=== PATIENT | female | born 1960 | race Caucasian/White ===

== ENCOUNTER 2019-03-17 15:52 | Observation (INO) | payer OTHER ==
[~2019-03-17] VITALS: Ht 170.2 cm; Wt 93.9 kg
--- OUTSIDE RECORDS SUMMARY | 2019-03-17 15:54 | XMS REPORT | Encounter Summary ---
Author Organization Unknown Address [address] [place] [address] Phone [phone] Care Team Providers Care Senior Quality Assurance Analyst Name Role Phone Dr. Ajit Barnes 3 [phone] Reason for Visit thyroid problem Instructions 1. Adult health examination CBC w/ auto diff CMP, serum or plasma lipid panel, serum 2. Body mass index 25-29 - overweight learning about healthy weight 3. Hypothyroidism levothyroxine 150 mcg tablet TSH, serum or plasma 4. Screening for malignant neoplasm of breast 5. Screening for malignant neoplasm of colon fecal occult blood, stool 6. Major depressive disorder 7. Insomnia zolpidem 10 mg tablet 8. Genital herpes simplex valacyclovir 500 mg tablet 9. Impacted cerumen of bilateral ears Discussion Note: None recorded. Plan of Care Reminders Provider Appointments Est Patient 02/25/2019 2:30PM Ajit Patel MD Lab Fecal Occult Blood, Stool 11/25/2018 [facility] TSH, Serum or Plasma 11/25/2018 [facility] CBC W/ Auto Diff 11/25/2018 [facility] CMP, Serum or Plasma 11/25/2018 [facility] Lipid Panel, Serum 11/25/2018 [facility] Referral None recorded. Procedures None recorded. Surgeries None recorded. Imaging None recorded. Medications Name Start Date fenofibrate nanocrystallized 145 mg tablet Take 1 tablet every day by oral route for 90 days. levothyroxine 150 mcg tablet Take 1 tablet every day by oral route. olmesartan 20 mg-hydrochlorothiazide 12.5 mg tablet Take 1 tablet every day by oral route for 90 days. Trintellix 10 mg tablet Take 1 tablet twice a day by oral route. valacyclovir 500 mg tablet Take 1 tablet every day by oral route as needed. zolpidem 10 mg tablet Take 1 tablet as needed by oral route at bedtime for 30 days. Medications Administered None recorded. Vitals Height Weight BMI Blood Pressure 5 ft 6.5 in 172.4 lbs 27.4 kg/m2 138/82 mm[Hg] Lab Results None recorded. Allergies Code Code System Name Reaction Severity Status Onset NKDA Problems Name Status Onset Date Source Hypothyroidism Active 11/25/2018 Hyperlipidemia Active 11/25/2018 Major Depressive Disorder Active 11/25/2018 Insomnia Active 11/25/2018 Hypertensive Disorder Active 11/25/2018 Procedures None recorded. Vaccine List None recorded. Social History Smoking Status Former Smoker (1 PPD) Past Encounters 11/25/2018 Adult Health Examination; Body Mass Index 25-29 - Overweight; Hypothyroidism; Screening for Malignant Neoplasm of Breast; Screening for Malignant Neoplasm of Colon; Major Depressive Disorder; Insomnia; Genital Herpes Simplex; Impacted Cerumen of Bilateral Ears Ajit Patel MD: [address] [place] [address], Ph. History of Present Illness Note:Coming to establish care. Hx of HTN, HLD, hypothyroidism, insomnia and MDD. Not checking BPs at home. Needs refills. Compliant with meds. Non compliant with diet or exercise. No side effects with meds. No new concerns. Review of Systems Comprehensive General Adult ROS Reported By: Patient Constitutional: Constitutional: no fever, no night sweats, no significant weight gain, no significant weight loss, no exercise intolerance Eyes: Eyes: no dry eyes, no vision change, no irritation ENMT: Ears: no ear pain, difficulty hearing. Nose: no frequent nosebleeds, no nose problems, no sinus problems. Mouth/Throat: no sore throat, no bleeding gums, no snoring, no dry mouth, no mouth ulcers, no oral abnormalities, no teeth problems Cardiovascular: Cardiovascular: no chest pain, no arm pain on exertion, no shortness of breath when walking, no shortness of breath when lying down, no palpitations, no known heart murmur, no lightheadedness Respiratory: Respiratory: no cough, no wheezing, no shortness of breath, no coughing up blood, no sleep apnea Gastrointestinal: Gastrointestinal: no abdominal pain, no nausea, no vomiting, no constipation, normal appetite, no diarrhea, not vomiting blood, no dyspepsia, no GERD Genitourinary: Genitourinary: no incontinence, no difficulty urinating, no hematuria, no increased frequency Musculoskeletal: Musculoskeletal: no muscle aches, no muscle weakness, no arthralgias/joint pain, no back pain, no swelling in the extremities Integumentary: Skin: no abnormal mole, no jaundice, no rashes, no laceration Neurologic: Neurologic: no loss of consciousness, no weakness, no numbness, no seizures, no dizziness, no migraines, no headaches, no tremor Psychiatric: Psych: no depression, no sleep disturbances, feeling safe in a relationship, no alcohol abuse, no anxiety, no hallucinations, no suicidal thoughts Endocrine: Endocrine: no fatigue Hematologic/Lymphatic: Hematologic/Lymphatic no swollen glands, no bruising, no excessive bleeding Allergic/Immunologic: Allergy/Immunologic: no runny nose, no sinus pressure, no itching, no hives, no frequent sneezing Physical Exam General Adult Exam (male) Reported By: Patient Constitutional: General Appearance: healthy-appearing, overweight. Level of Distress: NAD. Ambulation: ambulating normally Psychiatric: Insight: good judgement. Mental Status: active and alert, normal mood, normal affect. Orientation: to time, to place, to person. Memory: recent memory normal, remote memory normal Head: Head: normocephalic, atraumatic Eyes: Lids and Conjunctivae: non-injected, no discharge. EOM: EOMI ENMT: Ears: EAC ceruminous. Nose: no sinus tenderness. Lips, Teeth, and Gums: no mouth or lip ulcers. Oropharynx: moist mucous membranes Neck: Neck: supple, trachea midline. Thyroid: no enlargement, non-tender Lungs: Auscultation: breath sounds normal Cardiovascular: Heart Auscultation: RRR, normal S1, normal S2, no murmurs. Neck vessels: no carotid bruits Abdomen: Inspection and Palpation: soft, non-distended, no tenderness, no guarding Musculoskeletal:: Motor Strength and Tone: normal, normal tone. Joints, Bones, and Muscles: normal movement of all extremities, no contractures, no bony abnormalities, no malalignment, no tenderness. Extremities: no edema Neurologic: Gait and Station: normal gait. Cranial Nerves: grossly intact. Sensation: grossly intact. Reflexes: DTRs 2+ bilaterally throughout. Coordination and Cerebellum: [id number] intact, no tremor Skin: Inspection and palpation: no rash, no lesions Back: Thoracolumbar Appearance: normal curvature
--- OUTSIDE RECORDS SUMMARY | 2019-03-17 15:54 | XMS REPORT ---
Author Author [facility] Address Unknown Phone Unavailable Care Team Providers Care Application Coordinator Name Role Phone Unavailable Unavailable Payers Payer Name Policy Type Policy Number Effective Date Expiration Date Problems This patient has no known problems. Allergies, Adverse Reactions, Alerts Allergy Name Allergy Type Status Severity Reaction(s) Onset Date Inactive Date Treating Clinician Comments No Known Allergies DA Active U 2018-05-30 00:00:00 No Known Contrast Allergies DA Active U 2006-02-07 00:00:00 No Known Drug Allergies DA Active U 2006-02-07 00:00:00 No Known Food Allergies DA Active U 2006-02-07 00:00:00 No Known Other Allergies DA Active U 2006-02-07 00:00:00 No Known Drug Intolerances DA Active U 2006-02-06 00:00:00 Medications This patient has no known medications.
[2019-03-17] MEDS ORDERED: SODIUM CHLORIDE 0.9% 1000ML 1,000 ML IV STA (16:21)
[2019-03-17] MEDS ORDERED: ONDANSETRON HCL INJ 2MG/ML 2ML 2 MG/ML VIAL IV ONE (16:21)
[2019-03-17 16:45] LABS: BASOPHILS % 0.3 % (0.0-1.0); EOSINOPHILS # (AUTO) 0.1 (0.0-0.4); EOSINOPHILS % 0.9 % (0.0-6.0); HEMATOCRIT 39.1 % (34.2-44.1); HEMOGLOBIN 13.6 g/dL (12.0-16.0); LYMPHOCYTES # (AUTO) 2.4 (1.0-3.2); LYMPHOCYTES % 24.9 % (18.0-39.1); MEAN CORPUSCULAR HEMOGLOBIN 32.3 pg (28-32); MEAN CORPUSCULAR HGB CONC 34.8 g/dL (31-35); MEAN CORPUSCULAR VOLUME 92.9 fL (81-99); MONOCYTES # (AUTO) 0.7 (0.2-0.8); MONOCYTES % 6.8 % (4.4-11.3); NEUTROPHILS # (AUTO) 6.4 (2.1-6.9); NEUTROPHILS % 66.8 % (38.7-80.0); PLATELET COUNT 294 x10e3/uL (140-360); RED BLOOD COUNT 4.21 x10e6/uL (3.6-5.1); RED CELL DISTRIBUTION WIDTH 12.2 % (11.7-14.4)
[2019-03-17 16:56] LABS: INR 0.85; PROTHROMBIN TIME 12.1 seconds (11.9-14.5)
[2019-03-17 16:57] LABS: PARTIAL THROMBOPLASTIN TIME 30.2 seconds (23.8-35.5)
[2019-03-17 17:02] LABS: BILIRUBIN,URINE NEGATIVE (NEGATIVE); CLARITY,URINE SL CLOUDY (CLEAR); COLOR,URINE YELLOW (YELLOW); KETONES,URINE NEGATIVE (NEGATIVE); LEUKOCYTE ESTERASE ,URINE NEGATIVE (NEGATIVE); NITRITE,URINE POSITIVE (NEGATIVE); PROTEIN,URINE DIPSTICK NEGATIVE (NEGATIVE); URINE UROBILINOGEN 0.2 mg/dL (0.2 - 1)
[2019-03-17 17:05] LABS: ALANINE AMINOTRANSFERASE 18 IU/L (0-55); ALBUMIN 3.4 g/dL (3.5-5.0); ALBUMIN/GLOBULIN RATIO 1.1 (0.8-2.0); ALKALINE PHOSPHATASE 96 IU/L (40-150); ANION GAP 13.1 mmol/L (8-16); BLOOD UREA NITROGEN 20 mg/dL (7-26); BUN/CREATININE RATIO 18 (6-25); CALCIUM 9.7 mg/dL (8.4-10.2); CARBON DIOXIDE 30 mmol/L (22-29); CHLORIDE 95 mmol/L (98-107); CREATINE KINASE 36 IU/L (29-168); EST GLOMERULAR FILTRATION RATE 51 ML/MIN (60-); GLUCOSE 103 mg/dL (74-118); LIPASE 25 U/L (8-78); POTASSIUM 3.1 mmol/L (3.5-5.1); SODIUM 135 mmol/L (136-145)
[2019-03-17 17:22] LABS: BACTERIA,URINE MODERATE /HPF; EPITHELIAL CELLS,URINE MODERATE /LPF; WBC,URINE (MAN) 0-5 /HPF (0-5)
--- NOTE | 2019-03-17 17:24 | Diagnostic Imaging Report ---
EXAM: CHEST SINGLE (PORTABLE) DATE: 03/17/2019 4:21 PM INDICATION: Vomiting, diarrhea COMPARISON: None FINDINGS: The trachea is midline. The lungs are symmetrically expanded without evidence for focal consolidation, pneumothorax, or significant pleural effusion. The cardiomediastinal silhouette and pulmonary vasculature are within normal limits. Partially visualized cervical fusion hardware is noted. No acute osseous abnormalities identified. IMPRESSION: No acute cardiopulmonary process identified. Signed by: Dr. Saravanan Moses MD on 03/17/2019 5:20 PM
[2019-03-17] MEDS ORDERED: POTASSIUM CHLORIDE 20 MEQ TAB CR PO ONE (18:03)
--- NOTE | 2019-03-17 18:13 | Diagnostic Imaging Report ---
EXAM: CT Abdomen and Pelvis WITH contrast INDICATION: Vomiting and diarrhea. Lower back pain. COMPARISON: None. TECHNIQUE: Abdomen and pelvis were scanned utilizing a multidetector helical scanner from the lung base to the pubic symphysis after administration of IV contrast. Coronal and sagittal reformations were obtained. Routine protocol was performed. Scan was performed when during portal venous phase. IV CONTRAST: 100 mL of Isovue-370 ORAL CONTRAST: Water RADIATION DOSE: Total DLP: 409 mGy*cm Estimated effective dose: (DLP x 0.015 x size factor) mSv. Dose modulation, iterative reconstruction and weight base adjustment of the MA/KV was utilized to reduce the patient dose to as low as reasonably achievable COMPLICATIONS: None FINDINGS: LINES and TUBES: None. LOWER THORAX: Unremarkable HEPATOBILIARY: No focal hepatic lesions. No biliary ductal dilation. GALLBLADDER: No radio-opaque stones or sludge. No wall thickening. SPLEEN: No splenomegaly. PANCREAS: No focal masses or ductal dilatation. ADRENALS: No adrenal nodules KIDNEYS/URETERS: Kidneys enhance symmetrically. No hydronephrosis. Likely simple cysts in the right kidney. No stones. GI TRACT: No abnormal distention, wall thickening, or evidence of bowel obstruction. Appendix is normal. Scattered diverticulosis without evidence of diverticulitis PELVIC ORGANS/BLADDER: Likely left ovary in the left mid pelvis best seen on series 2 image 65. LYMPH NODES: No lymphadenopathy. VESSELS: Scattered vascular calcification. PERITONEUM / RETROPERITONEUM: No free air or fluid. BONES: Unremarkable. SOFT TISSUES: Left breast implant. IMPRESSION: 1. Scattered diverticulosis without evidence of diverticulitis. No bowel obstruction. Signed by: Dr. Dariel Dinh M.D. on 03/17/2019 6:09 PM
[2019-03-17] MEDS ORDERED: CEFTRIAXONE SOD 1 GM/NS 50 ML 50 ML IV ONE (18:15)
[2019-03-17] MEDS ORDERED: KCL 20MEQ/.9 SOD CHL 1,000 ML IV ONE (18:15)
[2019-03-17] MEDS: MORPHINE SULFATE 2 MG/ML SYR 1ML IV PRN (19:53)
[2019-03-17] MEDS: CEFTRIAXONE SOD 1 GM/NS 50 ML 50 ML IV SCH (19:53)
[2019-03-17] MEDS: ONDANSETRON HCL INJ 2MG/ML 2ML 2 MG/ML VIAL IV PRN (19:54)
[2019-03-17] MEDS ORDERED: ZOLPIDEM TARTRATE 5 MG TAB PO ONE (23:30)
[2019-03-18] MEDS ORDERED: IOPAMIDOL 370 MG/ML 200 ML INFUS..BTL INJ ONE (02:09)
[2019-03-18] MEDS ORDERED: SODIUM CHLORIDE 0.9% 50ML 50 ML ONE (02:09)
[2019-03-18 03:30] VITALS: BP 123/69
--- NOTE | 2019-03-18 03:30 | NUR ---
patient received to room 292 via wc from the er. vss. no c/o pain noted. ivf continue to infuse without difficulty x 1 bag only per orders. admit assessment/history obtained. patient unaware of her home medications and dosages. patient will have bring her medications to her today.
[2019-03-18 04:00] VITALS: BP 123/69
--- NOTE | 2019-03-18 06:44 | NUR ---
H&P cc: N/V/D HPI: 59yoF, PCP , developed N/V/D for 3 weeks. No abdominal pain. Went to see , sent to ED. Last colonoscopy about 9 yrs ago. PMH: HTN, nicotine dependence PSxh: hysterectomy Allergies; see emr FH/Sh; ; occ etoh; quit cigs Meds; see emr ROS: no f/c/s/cp/sob/dizziness/skin rash/back pain/vision changes/anxiety V/s; revd PE nad anicteric ns1s2 mod bs soft nt nd no e/t skin dry n. affect steele labs/meds; revd A/P: 59yoF Acute gastroenteritis- bacterial UTI [place] Hypokalemia Diverticulosis Obesity BMI 32.4 PLAN IVF; IV abx; f/u cx; Recheck labs SCD hba1c/lipids Gustavo Stanford MD, PhD
--- NOTE | 2019-03-18 07:00 | NUR ---
BEDSIDE SHIFT REPORT RECEIVED FROM THE DATA ENTRY COORDINATOR RN. EDUCATED PT ABOUT FALL PRECAUTIONS. CALL LIGHT WITH IN EASY REACH. INSTRUCTED PT TO CALL FOR ANY NEEDS. PT DENIES NEEDS AT THIS TIME.
[2019-03-18 07:21] LABS: BASOPHILS % 0.5 % (0.0-1.0); EOSINOPHILS # (AUTO) 0.2 (0.0-0.4); EOSINOPHILS % 2.9 % (0.0-6.0); HEMATOCRIT 33.7 % (34.2-44.1); HEMOGLOBIN 11.3 g/dL (12.0-16.0); LYMPHOCYTES # (AUTO) 2.7 (1.0-3.2); LYMPHOCYTES % 34.7 % (18.0-39.1); MEAN CORPUSCULAR HGB CONC 33.5 g/dL (31-35); MEAN CORPUSCULAR VOLUME 95.5 fL (81-99); MONOCYTES # (AUTO) 0.5 (0.2-0.8); MONOCYTES % 6.9 % (4.4-11.3); NEUTROPHILS # (AUTO) 4.3 (2.1-6.9); NEUTROPHILS % 54.7 % (38.7-80.0); PLATELET COUNT 223 x10e3/uL (140-360); RED BLOOD COUNT 3.53 x10e6/uL (3.6-5.1); RED CELL DISTRIBUTION WIDTH 12.5 % (11.7-14.4)
[2019-03-18 07:41] VITALS: BP 138/85
[2019-03-18 07:53] LABS: ALANINE AMINOTRANSFERASE 16 IU/L (0-55); ALBUMIN 2.9 g/dL (3.5-5.0); ALKALINE PHOSPHATASE 82 IU/L (40-150); ANION GAP 11.2 mmol/L (8-16); BLOOD UREA NITROGEN 11 mg/dL (7-26); BUN/CREATININE RATIO 12 (6-25); CALCIUM 8.5 mg/dL (8.4-10.2); CARBON DIOXIDE 27 mmol/L (22-29); CHLORIDE 101 mmol/L (98-107); CREATININE, SERUM 0.89 mg/dL (0.57-1.11); EST GLOMERULAR FILTRATION RATE > 60 ML/MIN (60-); GLUCOSE 92 mg/dL (74-118); LIPASE 14 U/L (8-78); POTASSIUM 3.2 mmol/L (3.5-5.1); SODIUM 136 mmol/L (136-145)
[2019-03-18] MEDS: SODIUM CHLORIDE 0.9% 1000ML 1,000 ML IV SCH ×2 (07:57→20:00)
[2019-03-18] MEDS: MORPHINE SULFATE 2 MG/ML SYR 1ML IV PRN ×4 (08:01→21:50)
[2019-03-18] MEDS: METRONIDAZOLE 500MG/NS 100ML 100 ML IV SCH ×2 (08:09→16:55)
[2019-03-18 08:10] LABS: MAGNESIUM 1.3 MG/DL (1.3-2.1); PHOSPHORUS 3.1 MG/DL (2.3-4.7)
[2019-03-18] MEDS: FAMOTIDINE 20 MG/2 ML VIAL IV SCH ×2 (08:11→17:12)
[2019-03-18 08:41] VITALS: BP 138/85
[2019-03-18 11:31] VITALS: BP 152/91
[2019-03-18] MEDS: POTASSIUM CHLORIDE 20 MEQ TAB CR PO SCH ×2 (12:36→18:06)
[2019-03-18 15:37] VITALS: BP 115/65
[2019-03-18] MEDS: LACTOBACILLUS ACIDOPHILUS CAPSULE PO SCH (17:12)
[2019-03-18] MEDS ORDERED: HYZAAR 100-251 EACH (18:14)
[2019-03-18] MEDS ORDERED: ATORVASTATIN CA20 MG PO (18:15)
[2019-03-18] MEDS ORDERED: LEVOTHYROXINE50 MCG PO (18:15)
[2019-03-18] MEDS ORDERED: MIRALAX17 GM (18:17)
--- NOTE | 2019-03-18 19:00 | NUR ---
patient received awake, alert, sitting up in bed. noted at the bedside. patient denies pain/discomfort at this time. ivf continue to infuse without difficulty. pm assessment complete. patient instructed to call for assistance when needed.
[2019-03-18 19:37] LABS: WBC,FECAL (FECAL LACTOFERRIN) NEGATIVE (NEGATIVE)
[2019-03-18] MEDS: ONDANSETRON HCL INJ 2MG/ML 2ML 2 MG/ML VIAL IV PRN (21:50)
[2019-03-19] VITALS (7 sets, daily range): BP systolic 135–176; BP diastolic 67–84
[2019-03-19] MEDS: ONDANSETRON HCL INJ 2MG/ML 2ML 2 MG/ML VIAL IV PRN ×2 (04:10→20:38)
[2019-03-19] MEDS: MORPHINE SULFATE 2 MG/ML SYR 1ML IV PRN ×4 (04:10→20:38)
--- NOTE | 2019-03-19 07:00 | NUR ---
BEDSIDE SHIFT REPORT RECEIVED FROM THE PRODUCT DEVELOPMENT ASSISTANT RN. EDUCATED PT ABOUT FALL PRECAUTIONS. BED ALARM IS ON. CALL LIGHT WITH IN EASY REACH. INSTRUCTED PT TO CALL FOR ANY NEEDS. PT DENIES NEEDS AT THIS TIME.
--- NOTE | 2019-03-19 07:21 | NUR ---
IM- progress note O/N; no events ROS: no f/c/s/cp/sob/dizziness/skin rash/back pain/vision changes/anxiety V/s; revd PE nad anicteric ns1s2 mod bs soft nt nd no e/t skin dry n. affect steele labs/meds; revd A/P: 59yoF Acute gastroenteritis- bacterial UTI [place] Hypokalemia Diverticulosis Obesity BMI 32.4 PLAN IVF; IV abx; f/u cx; Recheck labs SCD hba1c/lipids 9-20 improving; check K; d/c planning; Gustavo Stanford MD, PhD
[2019-03-19] MEDS ORDERED: PEPCID20 MG PO (07:22)
[2019-03-19] MEDS ORDERED: ZOFRAN4 MG PO (07:22)
[2019-03-19] MEDS ORDERED: KEFLEX500 MG PO (07:22)
[2019-03-19] MEDS ORDERED: FLAGYL500 MG PO (07:22)
--- NOTE | 2019-03-19 07:45 | NUR ---
PT BP HIGH. PAGED DR. ALLEN. NEW ORDER RECEIVED FOR BP MED.
--- NOTE | 2019-03-19 08:00 | NUR ---
BP MEDS GIVEN. EDUCATED PT ABOUT MEDICATION POLICY. INFORMED PT NOT TO TAKE BP MEDS FROM HOME. PT VERBALIZED UNDERSTANDING.
[2019-03-19] MEDS: METRONIDAZOLE 500MG/NS 100ML 100 ML IV SCH ×4 (08:14→23:52)
[2019-03-19] MEDS: FAMOTIDINE 20 MG/2 ML VIAL IV SCH ×2 (08:14→16:32)
[2019-03-19] MEDS: LOSARTAN POTASSIUM 100 MG TAB PO SCH (08:14)
[2019-03-19] MEDS: HYDROCHLOROTHIAZIDE 25 MG TAB PO SCH (08:14)
[2019-03-19] MEDS: LACTOBACILLUS ACIDOPHILUS CAPSULE PO SCH ×2 (08:15→16:32)
[2019-03-19] MEDS: SODIUM CHLORIDE 0.9% 1000ML 1,000 ML IV SCH (10:37)
[2019-03-19 15:03] LABS: C DIFFICILE TOXIN A&B AMP PROB NEGATIVE (NEGATIVE)
[2019-03-19] MEDS: CEFTRIAXONE SOD 1 GM/NS 50 ML 50 ML IV SCH (18:00)
--- NOTE | 2019-03-19 18:00 | NUR ---
CALLED LAB REGARDING C DIFF RESULT. WILL TAKE 2 DAYS PER LAB.
--- NOTE | 2019-03-19 18:56 | NUR ---
BEDSIDE SHIFT REPORT GIVEN TO THE CARD LACER RN. PT DENIED FURTHER NEEDS.
--- NOTE | 2019-03-19 19:30 | NUR ---
patient received awake, alert, lying quietly in bed. no c/o pain noted. ivf continue to infuse without difficulty. pm assessment complete. patient instructed to call for assistance when needed.
[2019-03-19] MEDS ORDERED: ZOLPIDEM TARTRATE 5 MG TAB PO PRN (20:15)
--- NOTE | 2019-03-19 20:38 | NUR ---
patient medicated with morphine 2mg and zofran 4mg ivp for c/o lower back pain 01/06 at this time per patients request.
[2019-03-20] VITALS: BP 153/74
[2019-03-20] MEDS: SODIUM CHLORIDE 0.9% 1000ML 1,000 ML IV SCH ×2 (00:30→12:05)
[2019-03-20 04:00] VITALS: BP 140/83
--- NOTE | 2019-03-20 07:00 | NUR ---
BEDSIDE SHIFT REPORT RECEIVED FROM THE CHINCHILLA MACHINE OPERATOR RN. EDUCATED PT ABOUT FALL PRECAUTIONS. PT VERBALIZED UNDERSTANDING. PT REFUSED BED ALARM. PT DENIES NEEDS AT THIS TIME.
[2019-03-20 07:34] VITALS: BP 167/84
[2019-03-20] MEDS: MORPHINE SULFATE 2 MG/ML SYR 1ML IV PRN (07:51)
[2019-03-20] MEDS: METRONIDAZOLE 500MG/NS 100ML 100 ML IV SCH (07:56)
[2019-03-20] MEDS: FAMOTIDINE 20 MG/2 ML VIAL IV SCH (08:00)
[2019-03-20] MEDS: LACTOBACILLUS ACIDOPHILUS CAPSULE PO SCH (08:00)
--- NOTE | 2019-03-20 08:12 | NUR ---
D/C summary Principal dx: Acute gastroenteritis- bacterial UTI [place] Hypokalemia Secondary Dx: Diverticulosis Obesity BMI 32.4 PLAN IVF; IV abx; f/u cx; Recheck labs SCD hba1c/lipids 03-19 improving; check K; d/c planning; 03/20 still having diarrhea; f/u c.diff; cont abx; d/c home f/u pcp 1 week and in 2 weeks stable d/c>35mins Gustavo Stanford MD, PhD
[2019-03-20 09:00] VITALS: BP 167/84
[2019-03-20] MEDS: HYDROCHLOROTHIAZIDE 25 MG TAB PO SCH (09:00)
[2019-03-20] MEDS: LOSARTAN POTASSIUM 100 MG TAB PO SCH (09:00)
--- NOTE | 2019-03-20 09:54 | NUR ---
PAGED DR BRANCH OFFICE AND INFORMED ABOUT PT D/C.
[2019-03-20] MEDS ORDERED: IMODIUM2 MG PO (09:59)
--- NOTE | 2019-03-20 10:00 | NUR ---
CALL BACK FROM DR. MEADOWS. LIKES TO SEE THE PT TODAY BEFORE D/C. INFORMED DR. ALLEN THE SAME.
[2019-03-20 11:05] VITALS: BP 164/84
--- NOTE | 2019-03-20 12:00 | NUR ---
DR. MEADOWS AT BEDSIDE. OKAY TO D/C PT PER THE DREllen CELAYA PRESCRIPTION RECEIVED AND GIVEN TO THE PT. PT DENIED FURTHER NEEDS.
[2019-03-20] MEDS ORDERED: ACIDOPHILUS1 EAC1 PO (12:01)
--- NOTE | 2019-03-20 12:15 | NUR ---
PT DISCHARGED HOME SAFELY. RX GIVEN. PT ESCORTED TO THE PARKING LOT. TELE AND IV REMOVED. TIP INTACT. NO BLEEDING NOTED. DRESSING APPLIED. PT DENIED FURTHER NEEDS.
--- NOTE | 2019-03-20 13:58 | Progress Note ---
DATE: SUBJECTIVE: Doing great Ms. Berger over the past few days, since her admissions there were no episodes of nausea and vomiting. Her diarrhea has subsided drastically, this was the major cause of her to be admitted. Her workup so far been negative. She had a chest x-ray unremarkable. CT scan of the abdomen and pelvic with contrast unremarkable. Her lab tests; CBC was normal. A comprehensive panel normal except for low potassium, which was replaced and mild increase in bilirubin, which could be worked up as an outpatient, probably Gilbert syndrome. Her stool test, fecal leukocyte negative, calprotectin pending. Stool culture pending. However, Clostridium difficile are negative. OBJECTIVE: VITAL SIGNS: Hemodynamically, stable. Afebrile. ABDOMEN: Soft, nontender. ASSESSMENT AND PLAN: She is feeling great. She will be sending home today on antibiotic, probiotic, and Pepcid; and will be followed as an outpatient. She tolerated her diet as well while she is in the hospital. Carl Doll MD RD/MODL /[id number]
--- NOTE | 2019-03-23 18:36 | Consultation ---
DATE OF CONSULTATION: 03/18/2019 HISTORY OF PRESENT ILLNESS: Ms. Berger is a 59-year-old, who came to see me in the office as an outpatient with nausea, vomiting, and loose bowel movement. She was found to have Helicobacter pylori at the office and she was started on treatment. Six days into her treatment, she phoned the office complaining of worsening of her nausea and vomiting. She could not keep any food down. I advised her to stop her antibiotic since she thinks that the antibiotics made things worse. However, she continued to have nausea and vomiting after stopping her antibiotic and was complained of unable to keep any food down and continued her diarrhea, so we admitted her to the hospital for workup and for hydration and management. In the emergency room, she had the CT scan of the abdomen with contrast, which was unremarkable. Her lab tests were unremarkable except for low potassium, which was replenished. The day I saw her, she was feeling somewhat more comfortable. She has no nausea or vomiting reported in the hospital. She still have loose bowel movement. MEDICATIONS: Her medication including losartan, levothyroxine, and atorvastatin. PAST MEDICAL HISTORY: Hypothyroidism, hyperlipidemia, hypertension, anxiety, depression. PAST SURGICAL HISTORY: She had a breast implant and disk fusion in the neck. FAMILY HISTORY: Father . Her mother still alive. SOCIAL HISTORY: She is a homemaker. She is . She does not drink and does not smoke. ALLERGIES: NIL. REVIEW OF SYSTEMS: Unremarkable. PHYSICAL EXAMINATION: GENERAL: Awake, alert, and oriented, hemodynamically stable. NECK: Supple. LUNGS: Clear. HEART: Irregularly irregular. Occasional irregular beat. ABDOMEN: Obese, soft. No acute sign. Bowel sounds present. EXTREMITIES: No edema. CENTRAL NERVOUS SYSTEM: Motor function grossly intact. PLAN: My plan for her to continue hydrating her to obtain a stool test for fecal leukocyte, calprotectin, Clostridium difficile culture. Obtain urine for culture. She seems to be doing fine. I will start her on probiotic. We will continue her antiacid treatment. We are replacing her potassium. She had mild increase in bilirubin, could be Gilbert syndrome. This could be workup as an outpatient. Carl Doll MD RD/MODL /[id number]
--- NOTE | 2019-03-24 07:24 | Consultation ---
DATE OF CONSULTATION: 03/17/2019 HISTORY OF PRESENT ILLNESS: Ms. Berger is a 58 years old lady, who I have seen her in the office with episode of nausea, vomiting, abdominal discomfort. She was found to have Helicobacter pylori infection and was treated 6 days into the course of her treatment. She called us complaining that her nausea and vomiting got more worse when we restarted her on antibiotics, so we asked her to stop the antibiotic. We placed her on H2 henrique and we were planning to repeat her H pylori testing in 2 weeks after the antibiotic course. However, she continued to have nausea and vomiting despite stopping her antibiotic and her symptoms in matter of fact worsen, so we advised her to be in the hospital to be evaluated and treated for dehydration. She was admitted. She had CT scan of the abdomen with and without contrast, which was unremarkable. Her lab tests CBC, comprehensive panel, urinalysis all were unremarkable except for low potassium level. The patient was started in the emergency room on antibiotic and H2 blockers and I was asked to see her. The next morning after her admission, she was doing better, sitting in her bedside with less nausea and vomiting reported. She continued, however, complaining that her bowel being loose as it was before admitted to the hospital. REVIEW OF SYSTEMS: Unremarkable. CURRENT MEDICATIONS: She is on antibiotic and acid-pump inhibitor. DICTATION ENDS HERE Carl Doll MD RD/HOLLAND /[id number]
== END 2019-03-20 12:43 | disposition home or self-care (01) ==
LOC: ER 15:52 → INTOOBSV 19:31 → ERHOLD 19:31 → MED/SURG3 03-18 03:05
PROVIDERS: ADMIT Internal Medicine; ATTEND Internal Medicine
DX: A09 Infectious gastroenteritis and colitis, unspecified (principal); N39.0 Urinary tract infection, site not specified; N17.9 Acute kidney failure, unspecified; E87.6 Hypokalemia; R53.1 Weakness; I10 Essential (primary) hypertension; E03.9 Hypothyroidism, unspecified; F32.9 Major depressive disorder, single episode, unspecified; K57.30 Diverticulosis of large intestine without perforation or abscess without bleeding; E66.9 Obesity, unspecified; Z68.32 Body mass index [BMI] 32.0-32.9, adult; R11.14 Bilious vomiting; Z88.5 Allergy status to narcotic agent
CPT/HCPCS: 36415; 71045; 74177; 80053; 81001; 82550; 82553; 83630; 83690; 83735; 83993; 84100; 84132; 84484; 85025; 85610; 85730; 87045; 87086; 87493; 93005; 99284; G0378; J0696; J2270; J2405; J7030; Q9967

== ENCOUNTER → 2019-04-30 | Outpatient (CLI) | payer OTHER ==
[~2019-04-30] MED LIST: ACIDOPHILUS1 EAC1 PO; ATORVASTATIN CA20 MG PO; FLAGYL500 MG PO; HYZAAR 100-251 EACH; IMODIUM2 MG PO; KEFLEX500 MG PO; LEVOTHYROXINE50 MCG PO; MIRALAX17 GM; PEPCID20 MG PO; ZOFRAN4 MG PO
--- NOTE | 2019-04-30 13:02 | Diagnostic Imaging Report ---
EXAM: Gallbladder Ultrasound INDICATION: ^[id number] ^[id number] ^NAUSEA COMPARISON: 03/17/2019 TECHNIQUE: Transverse and longitudinal images of the gallbladder were obtained. FINDINGS: Liver: Normal appearance measuring 14.2 cm. Gallbladder: Stones/Sludge: None Wall: 0.2 cm Appearance: No wall thickening, pericholecystic fluid or hydrops. Sonographic Lopes's Sign: Negative Bile Ducts: Intrahepatic Ducts: No dilatation Extrahepatic Ducts: Common bile duct measures 0.5 cm, no dilatation Main portal vein and normal in appearance with normal blood flow measuring 0.8 cm. Right kidney normal in appearance measuring 10.0 cm. Pancreas normal in appearance. Visualized aorta and inferior vena cava unremarkable. Free Fluid: No ascites or pleural effusion IMPRESSION: Normal gallbladder/right upper quadrant ultrasound. Signed by: Dr. Dariel Dinh M.D. on 04/30/2019 12:58 PM
== END ==
LOC: US 10:56
PROVIDERS: ATTEND Internal Medicine Gastroenterology
DX: R11.0 Nausea (principal)
CPT/HCPCS: 76705

== ENCOUNTER 2021-06-11 16:56 | Inpatient (IN) | payer BC, OTHER ==
[~2021-06-11] VITALS: Ht 170.2 cm; Wt 72.6 kg
[2021-06-11] MEDS ORDERED: LEVOFLOXACIN 500MG/D5W 100ML 100 ML IV STA (17:06)
[2021-06-11] MEDS: METHYLPREDNISOLONE SOD SUCC 125 MG/2ML VIAL IV SCH (18:00)
[2021-06-11 18:17] LABS: BASOPHILS % 0.7 % (0.0-1.0); EOSINOPHILS # (AUTO) 0.6 (0.0-0.4); EOSINOPHILS % 10.7 % (0.0-6.0); HEMATOCRIT 39.2 % (34.2-44.1); HEMOGLOBIN 12.7 g/dL (12.0-16.0); LYMPHOCYTES # (AUTO) 2.3 (1.0-3.2); LYMPHOCYTES % 37.9 % (18.0-39.1); MEAN CORPUSCULAR HEMOGLOBIN 29.8 pg (28-32); MEAN CORPUSCULAR HGB CONC 32.4 g/dL (31-35); MONOCYTES # (AUTO) 0.7 (0.2-0.8); MONOCYTES % 11.1 % (4.4-11.3); NEUTROPHILS # (AUTO) 2.4 (2.1-6.9); NEUTROPHILS % 39.3 % (38.7-80.0); PLATELET COUNT 365 x10e3/uL (140-360); RED BLOOD COUNT 4.26 x10e6/uL (3.6-5.1); RED CELL DISTRIBUTION WIDTH 12.8 % (11.7-14.4)
[2021-06-11 18:28] LABS: ALBUMIN 3.9 g/dL (3.5-5.0); ALBUMIN/GLOBULIN RATIO 1.4 (0.8-2.0); ANION GAP 12.4 mmol/L (8-16); CREATININE, SERUM 1.09 mg/dL (0.57-1.11); POTASSIUM 3.4 mmol/L (3.5-5.1)
[2021-06-11 18:35] LABS: CREATINE KINASE MB 1.4 ng/mL (0-5.0)
[2021-06-11 18:48] VITALS: BP 109/61
[2021-06-11 19:41] VITALS: BP 113/66
[2021-06-11] MEDS ORDERED: SODIUM CHLORIDE 0.9% 250ML 250 ML ONE (19:46)
[2021-06-11 22:03] VITALS: BP 113/66
[2021-06-11] MEDS ORDERED: TRINTELLIX20 MG (23:34)
[2021-06-11] MEDS: QUETIAPINE FUMARATE 100 MG TAB PO PRN (23:42)
[2021-06-11 23:52] VITALS: BP 113/66
[2021-06-12] VITALS (7 sets, daily range): BP systolic 87–128; BP diastolic 52–68
[2021-06-12] MEDS: METHYLPREDNISOLONE SOD SUCC 125 MG/2ML VIAL IV SCH ×2 (00:48→06:00)
[2021-06-12 01:39] LABS: CREATINE KINASE MB 1.1 ng/mL (0-5.0)
[2021-06-12] MEDS: ALBUTEROL/IPRATROPIUM 3 ML NEB NEB SCH ×4 (03:00→19:55)
[2021-06-12 05:20] LABS: BASOPHILS % 0.2 % (0.0-1.0); HEMATOCRIT 33.8 % (34.2-44.1); HEMOGLOBIN 11.6 g/dL (12.0-16.0); LYMPHOCYTES # (AUTO) 0.6 (1.0-3.2); MEAN CORPUSCULAR HEMOGLOBIN 30.7 pg (28-32); MEAN CORPUSCULAR HGB CONC 34.3 g/dL (31-35); MEAN CORPUSCULAR VOLUME 89.4 fL (81-99); MONOCYTES % 0.9 % (4.4-11.3); NEUTROPHILS # (AUTO) 3.7 (2.1-6.9); NEUTROPHILS % 85.4 % (38.7-80.0); PLATELET COUNT 348 x10e3/uL (140-360); RED BLOOD COUNT 3.78 x10e6/uL (3.6-5.1); RED CELL DISTRIBUTION WIDTH 12.7 % (11.7-14.4)
[2021-06-12 05:53] LABS: ALBUMIN 3.5 g/dL (3.5-5.0); ALBUMIN/GLOBULIN RATIO 1.3 (0.8-2.0); ANION GAP 13.2 mmol/L (8-16); CALCIUM 8.7 mg/dL (8.4-10.2); CREATININE, SERUM 1.26 mg/dL (0.57-1.11); POTASSIUM 3.2 mmol/L (3.5-5.1)
[2021-06-12] MEDS ORDERED: LEVOTHYROXINE SODIUM 100 MCG TAB PO ONE (07:45)
[2021-06-12] MEDS ORDERED: CELECOXIB 200 MG CAP PO SCH (09:00)
[2021-06-12] MEDS ORDERED: FUROSEMIDE INJ 10 MG/ML 4 ML VIAL IV ONE (10:30)
[2021-06-12] MEDS ORDERED: POTASSIUM CHLORIDE 20 MEQ TAB CR PO ONE (10:45)
[2021-06-12] MEDS: CEFTRIAXONE 1 GM in SODIUM CHLORIDE 0.9% 50ML 50 ML IV SCH (12:30)
[2021-06-12] MEDS: ASPIRIN 81 MG CHEW TAB PO SCH (12:31)
[2021-06-12] MEDS ORDERED: MAGNESIUM HYDROXIDE 30 ML UDC PO PRN (12:45)
[2021-06-12] MEDS ORDERED: REGADENOSON 0.4 MG/5 ML SYR IV ONE (14:50)
[2021-06-12] MEDS: FAMOTIDINE 20 MG TAB PO SCH (16:33)
[2021-06-12] MEDS: ENOXAPARIN SOD INJ 40 MG/0.4 ML SYR SC SCH (16:33)
[2021-06-12 20:14] LABS: CREATINE KINASE MB 1.2 ng/mL (0-5.0)
[2021-06-12] MEDS: ATORVASTATIN 20 MG TAB PO SCH (20:26)
[2021-06-12] MEDS ORDERED: METHYLPREDNISOLONE SOD SUCC 40 MG/ML VIAL 1ML IV SCH (21:00)
[2021-06-12] MEDS: QUETIAPINE FUMARATE 100 MG TAB PO PRN (21:43)
[2021-06-13] MEDS: LEVOTHYROXINE SODIUM 100 MCG TAB PO SCH (05:07)
[2021-06-13 05:47] LABS: ANION GAP 14.3 mmol/L (8-16); CALCIUM 8.6 mg/dL (8.4-10.2); CREATININE, SERUM 1.17 mg/dL (0.57-1.11); POTASSIUM 3.3 mmol/L (3.5-5.1)
[2021-06-13 06:22] LABS: THYROID STIMULATING HORMONE 0.19 uIU/mL (0.350-4.940)
[2021-06-13] MEDS: ALBUTEROL/IPRATROPIUM 3 ML NEB NEB SCH ×3 (07:26→19:00)
[2021-06-13 08:12] VITALS: BP 103/66
[2021-06-13 08:53] VITALS: BP 103/66
[2021-06-13] MEDS: FAMOTIDINE 20 MG TAB PO SCH ×2 (09:00→16:27)
[2021-06-13] MEDS: ASPIRIN 81 MG CHEW TAB PO SCH (09:00)
[2021-06-13] MEDS: POTASSIUM CHLORIDE 20 MEQ TAB CR PO SCH (09:00)
[2021-06-13] MEDS: CEFTRIAXONE 1 GM in SODIUM CHLORIDE 0.9% 50ML 50 ML IV SCH (09:00)
[2021-06-13] MEDS: METHYLPREDNISOLONE SOD SUCC 40 MG/ML VIAL 1ML IV SCH ×2 (09:02→19:58)
[2021-06-13] MEDS: FUROSEMIDE INJ 10 MG/ML 4 ML VIAL IV SCH (09:02)
[2021-06-13] MEDS ORDERED: POTASSIUM CHLORIDE 20 MEQ TAB CR PO ONE (11:30)
[2021-06-13 12:25] VITALS: BP 116/65
[2021-06-13 15:27] VITALS: BP 110/62
[2021-06-13] MEDS: ENOXAPARIN SOD INJ 40 MG/0.4 ML SYR SC SCH (16:27)
[2021-06-13] MEDS: ATORVASTATIN 20 MG TAB PO SCH (19:58)
[2021-06-13] MEDS: QUETIAPINE FUMARATE 100 MG TAB PO PRN (19:59)
[2021-06-13 20:00] VITALS: BP 126/69
[2021-06-14] VITALS: BP 89/52
[2021-06-14] MEDS: ALBUTEROL/IPRATROPIUM 3 ML NEB NEB SCH ×2 (01:00→07:00)
[2021-06-14] MEDS: LEVOTHYROXINE SODIUM 100 MCG TAB PO SCH (05:12)
[2021-06-14 07:54] VITALS: BP 115/70
[2021-06-14 07:56] VITALS: BP 115/70
[2021-06-14] MEDS: ASPIRIN 81 MG CHEW TAB PO SCH (08:45)
[2021-06-14] MEDS: METHYLPREDNISOLONE SOD SUCC 40 MG/ML VIAL 1ML IV SCH (08:45)
[2021-06-14] MEDS: POTASSIUM CHLORIDE 20 MEQ TAB CR PO SCH (08:45)
[2021-06-14] MEDS: FUROSEMIDE INJ 10 MG/ML 4 ML VIAL IV SCH (08:45)
[2021-06-14] MEDS: CEFTRIAXONE 1 GM in SODIUM CHLORIDE 0.9% 50ML 50 ML IV SCH (08:45)
[2021-06-14] MEDS: FAMOTIDINE 20 MG TAB PO SCH (08:45)
[2021-06-14] MEDS ORDERED: CARVEDILOL 3.125 MG TAB PO SCH (17:00)
[2021-06-15] MEDS ORDERED: FUROSEMIDE 20 MG TAB PO SCH (09:00)
== END 2021-06-14 10:55 | disposition home or self-care (01) | DRG 291 ==
LOC: ER 17:01 → ERHOLD 17:42 → MED/SURG3 18:35 → OBSVTOIN 06-12 10:04
PROVIDERS: ADMIT Internal Medicine; ATTEND Internal Medicine
DX: I11.0 Hypertensive heart disease with heart failure (principal); I50.31 Acute diastolic (congestive) heart failure; J44.1 Chronic obstructive pulmonary disease with (acute) exacerbation; Z87.891 Personal history of nicotine dependence; E03.9 Hypothyroidism, unspecified; E78.5 Hyperlipidemia, unspecified; F41.9 Anxiety disorder, unspecified; F32.A Depression, unspecified; Z88.5 Allergy status to narcotic agent; Z20.822 Contact with and (suspected) exposure to COVID-19; I27.22 Pulmonary hypertension due to left heart disease
CPT/HCPCS: 36415; 71045; 71046; 71250; 78452; 80048; 80053; 82550; 82553; 83036; 83540; 83880; 84443; 84466; 84484; 85025; 85379; 93005; 93017; 93306; 94060; 94640; 94799; 99284; A9502; G0378; J0696; J1650; J1940; J1956; J2920; J2930; J7050; U0002

== ENCOUNTER → 2022-04-17 | Day surgery (SDC) | payer OTHER ==
[~2022-04-17] MED LIST changes: +BUSPIRONE HCL10 MG PO; +KETAMINE HCL INJ 50 MG/ML 10 ML VIAL ONE; +KETOROLAC TROMETHAMINE 30 MG/ML VIAL ONE; +PROPOFOL IV EMULSION 10 MG/ML 20 ML VIAL ONE; +PROTONIX20 MG PO; +TRINTELLIX20 MG
[2022-04-17 08:40] VITALS: BP 140/76
== END | disposition home or self-care (01) ==
LOC: ENDO 07:17
PROVIDERS: ATTEND Internal Medicine Gastroenterology
DX: K29.50 Unspecified chronic gastritis without bleeding (principal); K20.90 Esophagitis, unspecified without bleeding; Z86.19 Personal history of other infectious and parasitic diseases; K25.9 Gastric ulcer, unspecified as acute or chronic, without hemorrhage or perforation; K44.9 Diaphragmatic hernia without obstruction or gangrene; K21.9 Gastro-esophageal reflux disease without esophagitis; Z71.3 Dietary counseling and surveillance; I10 Essential (primary) hypertension; J44.9 Chronic obstructive pulmonary disease, unspecified; E78.00 Pure hypercholesterolemia, unspecified; E03.9 Hypothyroidism, unspecified; F32.A Depression, unspecified; Z88.6 Allergy status to analgesic agent; Z01.810 Encounter for preprocedural cardiovascular examination; Z79.899 Other long term (current) drug therapy; Z68.25 Body mass index [BMI] 25.0-25.9, adult
CPT/HCPCS: 43239; 93005; J1885

== ENCOUNTER → 2022-12-05 | Day surgery (SDC) | payer OTHER ==
[2022-12-02 13:57] LABS: ANION GAP 11.5 mmol/L (8-16); CALCIUM 9.5 mg/dL (8.4-10.2); CREATININE, SERUM 0.77 mg/dL (0.57-1.11); POTASSIUM 3.5 mmol/L (3.5-5.1)
[~2022-12-05] MED LIST changes: +BUPIVACAINE HCL 0.5% INJ 30 ML VIAL INJ ONE; +CEPHALEXIN500 MG PO; +DEXAMETHASONE SOD PHOS INJ 4 MG/ML SDV ONE; +EPHEDRINE SULFATE INJ 50 MG/ML VIAL ONE; +FENTANYL CITRATE/PF 100MCG/2 ML INJ ONE; +IBUPROFEN100 M1 PO; -KETAMINE HCL INJ 50 MG/ML 10 ML VIAL ONE; -KETOROLAC TROMETHAMINE 30 MG/ML VIAL ONE; +LACTATED RINGER'S 1,000 ML ONE; +LIDOCAINE HCL 2% LOCAL INJ 5 ML SDV VIAL INJ ONE; +MIDAZOLAM HCL 2 MG/2 ML VIAL ONE; +NAPROXEN250 MG PO; +ONDANSETRON HCL INJ 2MG/ML 2ML 2 MG/ML VIAL ONE; +PANTOPRAZOLE SO40 MG PO; +POVIDONE IODINE 0.05% 0.05 % ML PO ONE; +SEROQUEL100 MG PO; +SEVOFLURANE INHAL SOLN 250 ML PEN BTL ONE; +SUCRALFATE1 GM PO
[2022-12-05 12:49] VITALS: TEMP 97.1
[2022-12-05 13:50] VITALS: BP 111/79; PULSE 80; RESP 18; O2SAT 100
== END | disposition home or self-care (01) ==
LOC: OR 09:48
PROVIDERS: ATTEND Podiatrist Foot & Ankle Surgery
DX: M20.21 Hallux rigidus, right foot (principal); I10 Essential (primary) hypertension; E03.9 Hypothyroidism, unspecified; K21.9 Gastro-esophageal reflux disease without esophagitis; F32.A Depression, unspecified; Z01.810 Encounter for preprocedural cardiovascular examination; Z01.812 Encounter for preprocedural laboratory examination; Z01.818 Encounter for other preprocedural examination; Z79.899 Other long term (current) drug therapy
CPT/HCPCS: 28292; 36415; 71046; 80048; 93005; C1776; J0690; J1100; J2001; J2250; J2405; J2704; J3010; J7121

== ENCOUNTER 2022-12-22 21:21 | Observation (INO) | payer OTHER ==
[~2022-12-22] VITALS: Ht 170.2 cm; Wt 72.6 kg
[~2022-12-22 21:21] MED LIST changes: -BUPIVACAINE HCL 0.5% INJ 30 ML VIAL INJ ONE; -DEXAMETHASONE SOD PHOS INJ 4 MG/ML SDV ONE; -EPHEDRINE SULFATE INJ 50 MG/ML VIAL ONE; -FENTANYL CITRATE/PF 100MCG/2 ML INJ ONE; -IBUPROFEN100 M1 PO; -LACTATED RINGER'S 1,000 ML ONE; -LIDOCAINE HCL 2% LOCAL INJ 5 ML SDV VIAL INJ ONE; -MIDAZOLAM HCL 2 MG/2 ML VIAL ONE; -NAPROXEN250 MG PO; -ONDANSETRON HCL INJ 2MG/ML 2ML 2 MG/ML VIAL ONE; -PANTOPRAZOLE SO40 MG PO; -POVIDONE IODINE 0.05% 0.05 % ML PO ONE; -PROPOFOL IV EMULSION 10 MG/ML 20 ML VIAL ONE; -SEROQUEL100 MG PO; -SEVOFLURANE INHAL SOLN 250 ML PEN BTL ONE; -SUCRALFATE1 GM PO
[2022-12-22] MEDS ORDERED: ONDANSETRON HCL INJ 2MG/ML 2ML 2 MG/ML VIAL IV STA (21:47)
[2022-12-22 22:13] LABS: INR 0.89; PARTIAL THROMBOPLASTIN TIME 30.6 seconds (23.8-35.5); PROTHROMBIN TIME 12.5 seconds (11.9-14.5)
[2022-12-22 22:21] LABS: BASOPHILS % 0.6 % (0.0-1.0); EOSINOPHILS # (AUTO) 0.3 (0.0-0.4); HEMATOCRIT 36.7 % (34.2-44.1); HEMOGLOBIN 12.8 g/dL (12.0-16.0); LYMPHOCYTES # (AUTO) 2.8 (1.0-3.2); LYMPHOCYTES % 41.2 % (18.0-39.1); MEAN CORPUSCULAR HEMOGLOBIN 30.3 pg (28-32); MEAN CORPUSCULAR HGB CONC 34.9 g/dL (31-35); MONOCYTES # (AUTO) 0.6 (0.2-0.8); MONOCYTES % 9.3 % (4.4-11.3); NEUTROPHILS % 44.8 % (38.7-80.0); PLATELET COUNT 367 x10e3/uL (140-360); RED BLOOD COUNT 4.22 x10e6/uL (3.6-5.1)
[2022-12-22 22:24] LABS: ALBUMIN 4.1 g/dL (3.5-5.0); ALBUMIN/GLOBULIN RATIO 1.3 (0.8-2.0); ANION GAP 12.2 mmol/L (8-16); CALCIUM 9.4 mg/dL (8.4-10.2); CREATININE, SERUM 0.77 mg/dL (0.57-1.11); POTASSIUM 3.2 mmol/L (3.5-5.1)
[2022-12-22] MEDS ORDERED: IOPAMIDOL 370 MG/ML 100 ML INFUS..BTL INJ ONE (22:39)
[2022-12-23] VITALS (8 sets, daily range): BP systolic 92–139; BP diastolic 65–90; PULSE 65–78; RESP 16–20; TEMP 97.8–99.2; O2SAT 95–100
[2022-12-23] MEDS ORDERED: ONDANSETRON HCL INJ 2MG/ML 2ML 2 MG/ML VIAL IV STA
[2022-12-23] MEDS: KCL 20MEQ/.9 SOD CHL 1,000 ML IV SCH ×3 (00:38→20:00)
[2022-12-23] MEDS ORDERED: SEROQUEL100 MG PO (01:38)
[2022-12-23] MEDS ORDERED: NAPROXEN250 MG PO (03:14)
[2022-12-23] MEDS ORDERED: IBUPROFEN100 M1 PO (03:14)
[2022-12-23 06:17] LABS: HEMATOCRIT 34.5 % (34.2-44.1); HEMOGLOBIN 11.6 g/dL (12.0-16.0)
[2022-12-23] MEDS ORDERED: SODIUM CHLORIDE 0.9% 1000ML 1,000 ML IV SCH (11:00)
[2022-12-23 11:21] LABS: BASOPHILS % 0.7 % (0.0-1.0); EOSINOPHILS # (AUTO) 0.3 (0.0-0.4); EOSINOPHILS % 5.8 % (0.0-6.0); HEMATOCRIT 32.4 % (34.2-44.1); HEMOGLOBIN 11.1 g/dL (12.0-16.0); LYMPHOCYTES # (AUTO) 1.9 (1.0-3.2); MEAN CORPUSCULAR HEMOGLOBIN 30.6 pg (28-32); MEAN CORPUSCULAR HGB CONC 34.3 g/dL (31-35); MEAN CORPUSCULAR VOLUME 89.3 fL (81-99); MONOCYTES # (AUTO) 0.5 (0.2-0.8); MONOCYTES % 10.9 % (4.4-11.3); NEUTROPHILS # (AUTO) 1.8 (2.1-6.9); NEUTROPHILS % 40.4 % (38.7-80.0); PLATELET COUNT 280 x10e3/uL (140-360); RED BLOOD COUNT 3.63 x10e6/uL (3.6-5.1); RED CELL DISTRIBUTION WIDTH 12.2 % (11.7-14.4)
[2022-12-23 11:39] LABS: ANION GAP 11.8 mmol/L (8-16); CALCIUM 8.6 mg/dL (8.4-10.2); CREATININE, SERUM 0.76 mg/dL (0.57-1.11); MAGNESIUM 1.7 MG/DL (1.3-2.1); PHOSPHORUS 3.5 MG/DL (2.3-4.7); POTASSIUM 3.8 mmol/L (3.5-5.1)
[2022-12-23 18:54] LABS: HEMATOCRIT 31.2 % (34.2-44.1); HEMOGLOBIN 10.4 g/dL (12.0-16.0)
[2022-12-24] VITALS (7 sets, daily range): BP systolic 120–159; BP diastolic 59–90; PULSE 65–70; RESP 18–20; TEMP 97.8–98.3; O2SAT 96–100
[2022-12-24 04:57] LABS: HEMATOCRIT 28.4 % (34.2-44.1); HEMOGLOBIN 9.3 g/dL (12.0-16.0)
[2022-12-24] MEDS: KCL 20MEQ/.9 SOD CHL 1,000 ML IV SCH ×2 (05:09→15:27)
[2022-12-24] MEDS ORDERED: LEVOTHYROXINE SODIUM 100 MCG TAB PO SCH (06:00)
[2022-12-24] MEDS ORDERED: BUSPIRONE HCL 10 MG TABLET PO PRN (12:30)
[2022-12-24 12:45] LABS: HEMOGLOBIN 9.9 g/dL (12.0-16.0)
[2022-12-24] MEDS ORDERED: SUCRALFATE1 GM PO (19:46)
[2022-12-24] MEDS ORDERED: PANTOPRAZOLE SO40 MG PO (19:46)
== END 2022-12-24 20:00 | disposition home or self-care (01) ==
LOC: ER 21:25 → ERHOLD 12-23 00:02 → MED/SURG2 12-23 00:58
PROVIDERS: ADMIT Internal Medicine; ATTEND Internal Medicine
DX: K92.0 Hematemesis (principal); K92.1 Melena; K29.50 Unspecified chronic gastritis without bleeding; K25.7 Chronic gastric ulcer without hemorrhage or perforation; K44.9 Diaphragmatic hernia without obstruction or gangrene; K20.90 Esophagitis, unspecified without bleeding; E87.1 Hypo-osmolality and hyponatremia; E87.6 Hypokalemia; I10 Essential (primary) hypertension; E78.5 Hyperlipidemia, unspecified; J44.9 Chronic obstructive pulmonary disease, unspecified; Z87.891 Personal history of nicotine dependence; E03.9 Hypothyroidism, unspecified; F41.9 Anxiety disorder, unspecified; F32.A Depression, unspecified; Z11.52 Encounter for screening for COVID-19; Z79.899 Other long term (current) drug therapy
CPT/HCPCS: 36415 ×3; 43239; 74174; 80048; 80053; 83690; 83735; 84100; 85014 ×2; 85018 ×2; 85025 ×2; 85610; 85730; 88305; 88342; 99284; C9113 ×3; G0378 ×2; J2405 ×2; Q9967; U0002; 88312